=== PATIENT | male | born 1985 | race Caucasian/White ===

== ENCOUNTER 2018-09-02 08:00 | Emergency (ER) | payer BC, SELFPAY ==
[~2018-09-02] VITALS: Ht 177.8 cm; Wt 105.5 kg
[2018-09-02] MEDS ORDERED: NS 1,000 ML IV ONE (08:30)
[2018-09-02] MEDS ORDERED: ONDANSETRON 4MG/2ML VIAL (J2405) IV ONE (09:00)
[2018-09-02 09:24] LABS: BASO % 0.4 % (0.0-1.0); EOS % 0.2 % (0.0-3.0); HEMATOCRIT 45.8 % (42.0-52.0); HEMOGLOBIN 16.2 g/dl (13.5-17.5); LYMPH # 1.5 10^3/uL (1.5-4.5); LYMPH % 17.2 % (24.0-44.0); MEAN CORPUSCULAR HEMOGLOBIN 32.2 pg (27.0-33.0); MEAN CORPUSCULAR HGB CONC 35.4 g/dl (32.0-36.5); MEAN CORPUSCULAR VOLUME 91.1 fl (80.0-96.0); MONO # 0.5 10^3/uL (0.0-0.8); MONO % 5.7 % (0.0-5.0); NEUTROPHILS # 6.4 10^3/uL (1.8-7.7); NEUTROPHILS % 76.1 % (36.0-66.0); PLATELET COUNT, AUTOMATED 256 10^3/uL (150-450); RED BLOOD COUNT 5.03 10^6/uL (4.30-6.10); WHITE BLOOD COUNT 8.5 10^3/uL (4.0-10.0)
[2018-09-02 10:06] LABS: ALBUMIN 4.1 GM/DL (3.2-5.2); ALT/SGPT 21 U/L (12-78); BILIRUBIN,DIRECT 0.1 MG/DL (0.0-0.2); BILIRUBIN,TOTAL 0.5 MG/DL (0.2-1.0); BLOOD UREA NITROGEN 12 MG/DL (7-18); CALCIUM LEVEL 9.2 MG/DL (8.5-10.1); CARBON DIOXIDE LEVEL 29 MEQ/L (21-32); CHLORIDE LEVEL 105 MEQ/L (98-107); CREATININE FOR GFR 1.01 MG/DL (0.70-1.30); GLOMERULAR FILTRATION RATE > 60.0 (>60); GLUCOSE, FASTING 106 MG/DL (70-100); LIPASE 69 U/L (73-393); POTASSIUM SERUM 4.7 MEQ/L (3.5-5.1); SODIUM LEVEL 137 MEQ/L (136-145); TOTAL PROTEIN 7.8 GM/DL (6.4-8.2)
[2018-09-02] MEDS ORDERED: ONDA4TAB6 PO (12:10)
[2018-09-02 12:17] VITALS: BP 140/87
== END 2018-09-02 12:21 | disposition home or self-care (01) ==
LOC: M ED 08:36
DX: A08.4 Viral intestinal infection, unspecified (principal); K21.9 Gastro-esophageal reflux disease without esophagitis; Z72.0 Tobacco use
CPT/HCPCS: 80048; 80076; 81001; 83690; 85025; 87507; 96361; 96374; 99284; J2405

== ENCOUNTER 2019-05-08 14:02 | Emergency (ER) | payer BC, SELFPAY ==
[~2019-05-08] VITALS: Ht 180.3 cm; Wt 105.8 kg
[~2019-05-08 14:02] MED LIST: ONDA4TAB6 PO
[2019-05-08 14:34] LABS: BASO # 0.1 10^3/uL (0.0-0.2); BASO % 0.4 % (0.0-1.0); EOS % 0.2 % (0.0-3.0); HEMATOCRIT 49.3 % (42.0-52.0); HEMOGLOBIN 17.4 g/dl (13.5-17.5); LYMPH # 1.7 10^3/uL (1.5-5.0); LYMPH % 14.5 % (24.0-44.0); MEAN CORPUSCULAR HEMOGLOBIN 31.8 pg (27.0-33.0); MEAN CORPUSCULAR HGB CONC 35.3 g/dl (32.0-36.5); MONO # 0.6 10^3/uL (0.0-0.8); MONO % 5.1 % (0.0-5.0); NEUTROPHILS # 9.1 10^3/uL (1.5-8.5); NEUTROPHILS % 79.5 % (36.0-66.0); PLATELET COUNT, AUTOMATED 277 10^3/uL (150-450); RED BLOOD COUNT 5.48 10^6/uL (4.30-6.10); WHITE BLOOD COUNT 11.5 10^3/uL (4.0-10.0)
--- NOTE | 2019-05-08 14:36 | REP ---
Portable chest, 02:21 p.m., single AP view : There are no comparisons. The lung reynolds are clear. The cardiac size is normal. The waqar, mediastinum, and skeletal structures are unremarkable. Impression: Negative portable chest. . Electronically Signed by Blane Boyce MD 05/08/2019 02:28 P
[2019-05-08 14:55] LABS: BLOOD UREA NITROGEN 16 MG/DL (7-18); CALCIUM LEVEL 9.6 MG/DL (8.5-10.1); CARBON DIOXIDE LEVEL 26 MEQ/L (21-32); CHLORIDE LEVEL 105 MEQ/L (98-107); CK-MB VALUE MASS < 1.0 NG/ML (<3.6); CPK CREATINE PHOSPHOKINASE 105 U/L (39-308); CREATININE FOR GFR 1.03 MG/DL (0.70-1.30); GLOMERULAR FILTRATION RATE > 60.0 (>60); GLUCOSE, FASTING 100 MG/DL (70-100); MB/CK RELATIVE INDEX 0.95 (< OR =4); POTASSIUM SERUM 4.3 MEQ/L (3.5-5.1); SODIUM LEVEL 136 MEQ/L (136-145); TROPONIN I < 0.02 NG/ML (< 0.10)
[2019-05-08] MEDS ORDERED: ISOVUE-370 76% 100ML VIAL (Q9967) As Ordered ONE (15:57)
--- NOTE | 2019-05-08 16:25 | REP ---
Head CT without contrast: History: Tingling in the fingers. Dizziness. Comparison study: No comparison study. CT findings: Bone window settings demonstrate an intact bony calvarium. There is no evidence of skull fracture or incidental bony calvarial lesion. The visualized paranasal sinuses appear clear. No intraorbital abnormality is seen. On soft tissue window setting images; the lateral, third, and fourth ventricles are normal in size and position. Orta-white differentiation pattern is normal above and below the tentorium. There are is no evidence of intracranial hemorrhage. No mass, edema, infarction, or midline shift is seen. No extra-axial fluid collection is appreciated. Impression: Negative noncontrast head CT. Electronically Signed by Varghese Noble MD 05/08/2019 04:17 P
--- NOTE | 2019-05-08 16:56 | REP ---
CT pulmonary angiogram: With IV contrast. History: Shortness of breath. Chest pain. Family history of factor 5 Leiden deficiency. Comparison studies: No comparison study. Contrast dose: 75 mL of Isovue [address] technique: Helical scanning is acquired and overlapping 1.5 mm and contiguous 3 mm axial images are reformatted. In addition, maximum intensity projection and multiplanar re-formation images are generated in sagittal and coronal imaging projections. CT pulmonary angiographic findings: There is good opacification of the pulmonary arterial tree. No vessel cutoff or filling defect is seen to suggest pulmonary embolism. Thoracic aorta is normal in coarse, caliber and homogeneous in contrast enhancement. No aneurysm or dissection is seen. Great vessels are unremarkable. No pleural or pericardial effusion is seen. No hilar or mediastinal mass or adenopathy is observed. Visualized upper abdominal structures are unremarkable. No significant bony abnormality is appreciated. No infiltrate or mass lesion is seen. There is a small benign 3 mm perifissural nodule in the right lower lobe. No significant nodule is seen. Impression: No CT evidence of pulmonary embolus. No active cardiopulmonary disease. Electronically Signed by Varghese Noble MD 05/08/2019 05:02 P
[2019-05-08 17:09] LABS: INR 1.1; PROTHROMBIN TIME 13.9 SECONDS (11.8-14.0)
[2019-05-08 17:10] LABS: PARTIAL THROMBOPLASTIN TIME 32.8 SECONDS (25.0-38.4)
[2019-05-08 20:12] LABS: CK-MB VALUE MASS < 1.0 NG/ML (<3.6); CPK CREATINE PHOSPHOKINASE 86 U/L (39-308); MB/CK RELATIVE INDEX 1.16 (< OR =4); TROPONIN I < 0.02 NG/ML (< 0.10)
[2019-05-08 20:32] VITALS: BP 135/80
--- NOTE | 2019-05-08 20:59 | ECGEPIP ---
[facility] - ED Test Date: 2019-05-08 Pat Name: BETH VIZCAINO Department: Room: - Gender: Male Yarder: [facility] : 1985 Requested By: KENNY COOK PA-C. Order Number: [id number] Reading MD: Vanessa Young Measurements Intervals [place] Rate: 71 P: 16 OK: 197 QRS: 25 QRSD: 88 T: 0 QT: 359 QTc: 392 Interpretive Statements SINUS RHYTHM NO PRIOR Electronically Signed on 05-08-2019 20:59:27 EDT by Vanessa Young
--- NOTE | 2019-05-08 21:02 | ECGEPIP ---
[facility] - ED Test Date: 2019-05-08 Pat Name: BETH VIZCAINO Department: Room: - Gender: Male [employer]: : 1985 Requested By: YOANDY Newell PA-C Order Number: [id number] Reading MD: Vanessa Young Measurements Intervals [place] Rate: 59 P: 16 CT: 215 QRS: 20 QRSD: 91 T: 5 QT: 388 QTc: 385 Interpretive Statements SINUS BRADYCARDIA WITH FIRST DEGREE AV BLOCK DECREASED RATE 05/08/19 Electronically Signed on 05-08-2019 21:02:36 EDT by Vanessa Young
[2019-05-15 00:07] LABS: ANTI THROMBIN 3 ANTIGEN IMMUNO 96 % (72-124); ANTI THROMBIN 3 FUNCT ACTIVITY 112 % (75-135); CARDIOLIPIN IGA ANTIBODY <9 APL U/mL (0-11); CARDIOLIPIN IGG ANTIBODY <9 GPL U/mL (0-14); CARDIOLIPIN IGM ANTIBODY <9 MPL U/mL (0-12); PHOSPHOLIPIDS LEVEL 205 mg/dL (150-250); PROTEIN C FUNCTIONAL ACTIVITY 111 % (73-180); PROTEIN S FUNCTIONAL ACTIVITY 102 % (63-140)
== END 2019-05-08 20:39 | disposition home or self-care (01) ==
LOC: M ED 14:02
DX: R07.89 Other chest pain (principal); R42 Dizziness and giddiness; I10 Essential (primary) hypertension; F17.218 Nicotine dependence, cigarettes, with other nicotine-induced disorders; F12.10 Cannabis abuse, uncomplicated
CPT/HCPCS: 36415; 70450; 71045; 71275; 80048; 81240; 82550; 82553; 84311; 84484; 85025; 85300; 85301; 85303; 85305; 85610; 85730; 86147; 93005; 99284; Q9967